=== PATIENT | female | born 1985 | race Caucasian/White ===

== ENCOUNTER 2017-04-06 19:23 | Inpatient (IN) | payer SELFPAY ==
[~2017-04-06] VITALS: Ht 167.6 cm; Wt 81.2 kg
[~2017-04-06 19:23] MED LIST: ACET-2158 PO
[2017-04-06 19:53] VITALS: Ht 167.6 cm; Wt 81.2 kg
[2017-04-06 19:54] VITALS: BP 119/74; PULSE 99; RESP 18
[2017-04-06] MEDS ORDERED: PREN-93 PO (19:56)
[2017-04-06] MEDS ORDERED: LACTATED RINGER'S 1,000 ML IV SCH (19:57)
[2017-04-06] MEDS ORDERED: MISOPROSTOL 200 MCG TAB PR PRN ×2 (20:00→21:30)
[2017-04-06] MEDS ORDERED: OXYTOCIN 30 UNITS/LR 500 ML IV SCH ×2 (20:00)
[2017-04-06] MEDS ORDERED: LIDOCAINE 1% (MPF) 30 ML INJ INJ PRN (20:00)
[2017-04-06] MEDS ORDERED: AMPICILLIN 2 GM/NS (PMX) 100 ML IV ONE (20:00)
[2017-04-06] MEDS ORDERED: IBUPROFEN 600 MG TAB PO PRN (20:00)
[2017-04-06] MEDS ORDERED: ACETAMINOPHEN/CODEINE #3 TAB PO PRN ×3 (20:00→21:30)
[2017-04-06] MEDS ORDERED: CARBOPROST 250 MCG INJ IM PRN ×2 (20:00→21:30)
[2017-04-06] MEDS ORDERED: OXYTOCIN 30 UNITS/LR 500 ML IV PRN ×2 (20:00→21:30)
[2017-04-06] MEDS ORDERED: METHYLERGONOVINE 0.2 MG INJ IM PRN ×2 (20:00→21:30)
[2017-04-06] MEDS ORDERED: BUTORPHANOL 2 MG INJ IV PRN ×2 (20:00)
[2017-04-06] MEDS ORDERED: LACTATED RINGER'S 1,000 ML IV PRN (20:04)
[2017-04-06] MEDS ORDERED: AMPICILLIN 2 GM/NS (PMX) 100 ML ONE (20:13)
[2017-04-06 20:46] LABS: ADD SCAN DIFF NO
[2017-04-06 20:49] LABS: ABNORMAL IP MESSAGE 1; BASOPHILS % 0.2 % (0.0-2.0); EOSINOPHILS # 0.2 10^3/ul (0.0-0.5); EOSINOPHILS % 1.3 % (0.0-7.0); HEMATOCRIT 29.8 % (37.0-47.0); HEMOGLOBIN 10.1 g/dl (12.0-16.0); MEAN CORPUSCULAR HEMOGLOBIN 33.9 pg (29.0-33.0); MEAN CORPUSCULAR HGB CONC 33.9 g/dl (32.0-37.0); MEAN PLATELET VOLUME 13.1 fl (7.4-10.4); MONOCYTE # 0.8 10^3/ul (0.3-0.9); MONOCYTES % 6.9 % (0.0-11.0); NEUTROPHIL # 8.8 10^3/ul (1.6-7.5); NEUTROPHILS % 73.5 % (39.0-77.0); NUCLEATED RED BLOOD CELLS% 0.2 /100WBC (0.0-0.0); PLATELET COUNT 146 10^3/UL (140-415); RED BLOOD COUNT 2.98 10^6/ul (4.20-5.40); RED CELL DISTRIBUTION WIDTH 14.6 % (11.5-14.5)
[2017-04-06 20:55] LABS: ADD UMIC NO; UR ASCORBIC ACID NEGATIVE (NEGATIVE); UR BILIRUBIN (Dip) NEGATIVE (NEGATIVE); UR BLOOD (Dip) NEGATIVE (NEGATIVE); UR CLARITY CLEAR (CLEAR); UR COLOR YELLOW (YELLOW); UR GLUCOSE (Dip) NEGATIVE (NEGATIVE); UR KETONES (Dip) NEGATIVE (NEGATIVE); UR LEUKOCYTE ESTERASE (Dip) NEGATIVE Leu/ul (NEGATIVE); UR NITRITE (Dip) NEGATIVE (NEGATIVE); UR SPECIFIC GRAVITY (Dip) 1.008 (1.003-1.030); UR TOTAL PROTEIN (Dip) NEGATIVE (NEGATIVE); UR UROBILINOGEN (Dip) NEGATIVE (NEGATIVE)
--- NOTE | 2017-04-06 21:06 | DELSUM ---
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 Babies in Womb: 1 Attempted: No Labor Anesthesia: None LABOR INFORMATION Reason for Induction: Not Applicable Onset of Labor: 04/06/2017 15:00 Complete Dilatation: 04/06/2017 20:10 Oxytocin: N/A Group B Beta Strep: Done, Result Unknown Antibiotics # of Doses: 0 Steroids Given: None Reason Steroids Not Administered: Not Applicable Other Reason Not Administered: TERM MEMBRANES Membranes Rupture Method: Spontaneous Membranes Rupture Method: Spontaneous Rupture of Membranes: 04/06/2017 20:15 Rupture of Membranes: 04/06/2017 20:15 Length of Rupture (hr): 0.03 Length of Rupture (hr): 0.03 Amniotic Fluid Color: Heavy Meconium Amniotic Fluid Color: Heavy Meconium Amniotic Fluid Amount: Small Amniotic Fluid Amount: Small Amniotic Fluid Odor: None Amniotic Fluid Odor: None STAGES OF LABOR Stage 1 hr: 5 Stage 1 min: 10 Stage 2 hr: 0 Stage 2 min: 7 Stage 3 hr: 0 Stage 3 min: 2 Total Time in Labor hr: 5 Total Time in Labor min: 19 VAGINAL DELIVERY Episiotomy: None Laceration Extension: Second Degree Laceration Type: Perineal Other Laceration: RIGHT LABIAL Laceration Repair: Yes Initial Vag Sponge Count: 10 Final Vag Sponge Count: 10 Initial Vag Sharps Count: 1 Final Vag Sharps Count: 1 Sponge Count Correct: Yes; Vaginal Sweep Performed Sharps Count Correct: Yes Count Comment: 1 SHARP ADDED TO FIELD BABY A INFORMATION Delivery Date/Time: 04/06/2017 20:17 Method of Delivery: Vaginal Method of Delivery: Vaginal Born in Route : No : N/A Forceps: N/A Vacuum Extraction: N/A Shoulder Dystocia : N/A SHOULDER DYSTOCIA BABY A Infant Delivery Date/Time: 04/06/2017 20:17 PRESENTATION/POSITION BABY A Presentation: Cephalic Cephalic Presentation: Vertex Vertex Position: Left Occipital Anterior Breech Presentation: N/A PLACENTA INFORMATION BABY A Placenta Delivery Time : 04/06/2017 20:19 Placenta Method of Delivery: Spontaneous Placenta Status: Delivered SCORES BABY A Heart Rate 1 min: >100 bpm Resp Effort 1 min: Good Cry Reflex Irritability 1 min: Cough/Sneeze/Pulls Away Muscle Tone 1 min: Active Motion Color 1 min: Blue/Pale Resuscitation Effort 1 min: Tactile Stimulation SCORE 1 MIN: 8 Heart Rate 5 min: >100 bpm Resp Effort 5 min: Good Cry Reflex Irritability 5 min: Cough/Sneeze/Pulls Away Muscle Tone 5 min: Active Motion Color 5 min: Body [place], Extremit Blue Resuscitation Effort 5 min: Tactile Stimulation SCORE 5 MIN: 9 INFORMATION BABY A Gestational Age at Delivery: 39.2 Gestational Status: Full Term- 39- 40.6 Weeks Outcome : Liveborn Infant Condition : Stable Infant Sex: Female Sex: Female IDENTIFICATION/MEDS BABY A ID Band Number: [id number] ID Band Location: Right Leg; Left Arm Sensor Applied: Yes Sensor Number: [id number] Sensor Location : Cord Clamp Vitamin K Given : Not Given Erythromycin Given: Not Given WEIGHT/LENGTH BABY A Infant Birthweight (gm): 3400 Infant Weight (lb): 7 Weight (oz): 8 Infant Length (in): 20.00 Infant Length (cm): 50.80 CORD INFORMATION BABY A No. 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
[2017-04-06 21:07] LABS: INR 0.9; PROTIME 12.1 Sec (12.2-14.2); PT RATIO 0.9
--- NOTE | 2017-04-06 21:09 | HP ---
Date/Time of Note Date/Time of Note DATE: 04/06/17 TIME: 21:03 OB - History Hx of Present Free Text/Dictation Contractions : 3 Para: 2 Care: Good Care Obstetrical Complications: None Medical Complications: None Past Family/Social History * Denies habits OB Admission Exam Vital Signs Vital Signs Vital Signs Date Time Temp Pulse Resp B/P Pulse Ox O2 Delivery O2 Flow Rate FiO2 04/06/17 19:54 98.7 99 18 119/74 Room Air Physical Exam HEENT: WNL Heart: Rhythm Normal Lungs: Clear, Equal Abdomen: WNL Extremities: Normal Reflexes: Normal Cervical Dilatation: 4cm Effacement: 100% Station: -2 Membranes: Ruptured Amniotic Fluid: Thick Meconium Accelerations: Accelerations Present Varibility: Moderate Contractions on Admission: < 5 Minutes Apart Intensity: Firm Last 72 hours Lab Results CBC & BMP 04/06/17 19:50 OB Assessment/Plan Reason for admission: active labor Other plan: at 39 weeks in active labor -admit to L&D -get records -expectant management -anticipate NELSON COURTNEY Apr 06, 2017 21:09
[2017-04-06 21:11] LABS: ALBUMIN 4.2 g/dl (3.3-4.9); ALBUMIN/GLOBULIN RATIO 1.2; CALCIUM 8.9 mg/dl (8.4-10.2); CREATININE 0.73 mg/dl (0.44-1.00); TOTAL PROTEIN 7.7 g/dl (6.1-8.1)
--- NOTE | 2017-04-06 21:18 | LDN ---
Date/Time of Note Date/Time of Note DATE: 04/06/17 TIME: 21:12 Delivery Summary Placenta Delivered: Spontaneously Meconium: Thick Perineal laceration: 2 Laceration repair: 2nd degree perineal and right labial laceration repaired with 3-0 chromic Anesthesia type: Local Estimated blood loss: 300 Sponge & Needle done & correct: Yes All needle counts correct: Yes Any foreign bodies felt in the: No Problems: Delivery Information Sex Infant Sex: female Apgars 1 Minute: 8 5 Minute: 9 Suctioning Nose & mouth suctioned at joo: Yes Umbilical Cord Umbilical cord with: 3 Vessels Cord presentations: nuchal cord Nuchal cord present X: 1 Cord Blood was obtained: Yes Mother & Baby Disposition Disposition Mom & Baby to Maternity; Good: Yes NELSON COURTNEY Apr 06, 2017 21:18
[2017-04-06] MEDS: LACTATED RINGER'S 1,000 ML IV* SCH (21:19)
[2017-04-06] MEDS ORDERED: BENZOCAINE 20% 56 ML SPRAY TOP PRN (21:30)
[2017-04-06] MEDS ORDERED: LANOLIN 7 GM TUBE TOP PRN (21:30)
[2017-04-06] MEDS ORDERED: WITCH HAZEL/GLYCERIN PAD PR PRN (21:30)
[2017-04-06] MEDS ORDERED: DIBUCAINE 1% 30 GM OINT PR PRN (21:30)
[2017-04-06 22:35] VITALS: BP 119/72; PULSE 72; RESP 19
[2017-04-06 22:40] LABS: BARBITURATES Negative (NEGATIVE); BENZODIAZEPINES Negative (NEGATIVE); CANNABINOIDS Negative (NEGATIVE); COCAINE Negative (NEGATIVE); OPIATES Negative (NEGATIVE)
[2017-04-06] MEDS: IBUPROFEN 600 MG TAB PO SCH (23:31)
[2017-04-06 23:35] VITALS: BP 121/74; PULSE 79; RESP 19
[2017-04-07] MEDS ORDERED: AMPICILLIN 1 GM/NS (PMX) 50 ML IV SCH
[2017-04-07] MEDS: OXYTOCIN 30 UNITS/LR 500 ML IV SCH ×2 (01:15→01:19)
[2017-04-07 03:30] VITALS: BP 114/59; PULSE 79; RESP 19
[2017-04-07] MEDS: LACTATED RINGER'S 1,000 ML IV* SCH ×3 (05:19→19:40)
[2017-04-07] MEDS: IBUPROFEN 600 MG TAB PO SCH ×4 (05:34→23:31)
[2017-04-07 08:00] VITALS: BP 107/66; PULSE 64; RESP 18
[2017-04-07 09:28] LABS: ADD SCAN DIFF NO
[2017-04-07 09:30] LABS: BASOPHILS % 0.2 % (0.0-2.0); EOSINOPHILS # 0.1 10^3/ul (0.0-0.5); EOSINOPHILS % 0.8 % (0.0-7.0); HEMATOCRIT 28.3 % (37.0-47.0); HEMOGLOBIN 9.6 g/dl (12.0-16.0); LYMPHOCYTES # 1.1 10^3/ul (0.8-2.9); LYMPHOCYTES % 9.1 % (15.0-51.0); MEAN CORPUSCULAR HEMOGLOBIN 34.2 pg (29.0-33.0); MEAN CORPUSCULAR HGB CONC 33.9 g/dl (32.0-37.0); MEAN CORPUSCULAR VOLUME 100.7 fl (82.0-101.0); MEAN PLATELET VOLUME 12.4 fl (7.4-10.4); MONOCYTE # 0.6 10^3/ul (0.3-0.9); MONOCYTES % 5.4 % (0.0-11.0); NEUTROPHILS % 83.6 % (39.0-77.0); PLATELET COUNT 141 10^3/UL (140-415); RED BLOOD COUNT 2.81 10^6/ul (4.20-5.40); RED CELL DISTRIBUTION WIDTH 14.5 % (11.5-14.5); WHITE BLOOD COUNT 11.9 10^3/ul (4.8-10.8)
--- NOTE | 2017-04-07 15:36 | PN ---
Date/Time of Note Date/Time of Note DATE: 04/07/17 TIME: 15:35 OB Subjective Subjective Subjective Post normal vaginal delivery day 1 Afebrile vital signs are stable abdomen soft uterus firm lochia normal extremity normal ambulation encouraged Laboratory Tests Test 04/06/17 19:50 04/07/17 09:15 White Blood Count 12.010^3/ul 11.910^3/ul Red Blood Count 2.9810^6/ul 2.8110^6/ul Hemoglobin 10.1g/dl 9.6g/dl Hematocrit 29.8% 28.3% Mean Corpuscular Volume 100.0fl 100.7fl Mean Corpuscular Hemoglobin 33.9pg 34.2pg Mean Corpuscular Hemoglobin Concent 33.9g/dl 33.9g/dl Red Cell Distribution Width 14.6% 14.5% Platelet Count 10257^3/UL 97835^3/UL Mean Platelet Volume 13.1fl 12.4fl Neutrophils % 73.5% 83.6% Lymphocytes % 17.0% 9.1% Monocytes % 6.9% 5.4% Eosinophils % 1.3% 0.8% Basophils % 0.2% 0.2% Nucleated Red Blood Cells % 0.2/100WBC 0.0/100WBC Neutrophils # 8.810^3/ul 10.010^3/ul Lymphocytes # 2.010^3/ul 1.110^3/ul Monocytes # 0.810^3/ul 0.610^3/ul Eosinophils # 0.210^3/ul 0.110^3/ul Basophils # 0.010^3/ul 0.010^3/ul Nucleated Red Blood Cells # 0.010^3/ul 0.010^3/ul Prothrombin Time 12.1Sec Prothrombin Time Ratio 0.9 INR International Normalized Ratio 0.90 Activated Partial Thromboplast Time 26.0Sec Urine Color YELLOW Urine Clarity CLEAR Urine pH 7.0 Urine Specific [place] 1.008 Urine Ketones NEGATIVEmg/dL Urine Nitrite NEGATIVEmg/dL Urine Bilirubin NEGATIVEmg/dL Urine Urobilinogen NEGATIVEmg/dL Urine Leukocyte Esterase NEGATIVELeu/ul Urine Hemoglobin NEGATIVEmg/dL Urine Glucose NEGATIVEmg/dL Urine Total Protein NEGATIVEmg/dl Sodium Level 136mmol/L Potassium Level 4.0mmol/L Chloride Level 106mmol/L Carbon Dioxide Level 22mmol/L Anion Gap 12 Blood Urea Nitrogen 14mg/dl Creatinine 0.73mg/dl Glucose Level 84mg/dl Calcium Level 8.9mg/dl Total Bilirubin 1.0mg/dl Direct Bilirubin 0.00mg/dl Indirect Bilirubin 1.0mg/dl Aspartate Amino Transf (AST/SGOT) 55IU/L Alanine Aminotransferase (ALT/SGPT) 90IU/L Alkaline Phosphatase 229IU/L Total Protein 7.7g/dl Albumin 4.2g/dl Globulin 3.50g/dl Albumin/Globulin Ratio 1.20 Urine Opiates Screen Negative Urine Barbiturates Negative Urine Amphetamines Screen Negative Urine Benzodiazepines Screen Negative Urine Cocaine Screen Negative Urine Cannabinoids Negative Rapid Plasma Reagin NONREACTIVE Hepatitis B Surface Antigen NEGATIVE HIV (1&2) Antibody NEGATIVE Current Medications Medications (Trade) Dose Ordered Sig/Yesi Route PRN Reason Start Time Stop Time Status Last Admin Dose Admin Lactated Ringer's 1,000 ml @ 125 mls/hr Q8H IV 04/06/17 19:57 04/06/17 21:28 DC 04/06/17 20:46 Ampicillin 100 ml @ 100 mls/hr ONCE ONCE IV 04/06/17 20:00 04/06/17 20:59 DC Ampicillin (Ampicillin 1 Gm/ NS (Pmx)) 50 ml @ 100 mls/hr Q4H IV 04/07/17 00:00 04/07/17 00:00 DC Butorphanol Tartrate (Stadol) 1 mg Q2H PRN IV PAIN 04/06/17 20:00 04/06/17 22:19 DC Butorphanol Tartrate (Stadol) 2 mg Q2H PRN IV PAIN 04/06/17 20:00 04/06/17 22:19 DC Lidocaine 30 ml 30 ml ONCE PRN INJ EPISIOTOMY/TEARING 04/06/17 20:00 Oxytocin/Lactated Ringer's 500 ml @ 125 mls/hr ONCE -MAY REPEAT X1 IV 04/06/17 20:00 04/06/17 20:46 Oxytocin/Lactated Ringer's 500 ml @ 125 mls/hr ONCE IV 04/06/17 20:00 04/06/17 20:47 Ibuprofen (Motrin) 600 mg ONCE PRN PO Mild Pain (Pain Score 1-3) 04/06/17 20:00 Acetaminophen/ Codeine Phosphate 2 tab 2 tab ONCE PRN PO Moderate to Severe Pain (4-10) 04/06/17 20:00 Lactated Ringer's 1,000 ml @ 2,000 mls/hr Q30M PRN IV PRE-EPIDURAL BOLUS 04/06/17 20:04 Oxytocin/Lactated Ringer's 500 ml @ 0 mls/hr ONCE PRN IV For Hemorrhage Management 04/06/17 20:00 04/06/17 21:28 DC Methylergonovine Maleate (Methergine) 0.2 mg ONCE PRN IM VAGINAL BLEEDING 04/06/17 20:00 04/06/17 21:28 DC Carboprost Tromethamine (Hemabate) 250 mcg ONCE PRN IM VAGINAL BLEEDING 04/06/17 20:00 04/06/17 21:28 DC Misoprostol 1000 mcg 1,000 mcg ONCE PRN NM VAGINAL BLEEDING 04/06/17 20:00 04/06/17 21:28 DC Ampicillin 100 ml @ STK-MED ONCE .ROUTE 04/06/17 20:13 04/06/17 20:14 DC Oxytocin/Lactated Ringer's 500 ml @ 125 mls/hr Q4H IV 04/06/17 21:19 04/07/17 05:18 DC 04/07/17 01:15 Lactated Ringer's (Lr) 1,000 ml @ 125 mls/hr Q8H IV* 04/06/17 21:19 Ibuprofen (Motrin) 600 mg Q6 PO 04/07/17 00:00 04/07/17 05:34 Acetaminophen/ Codeine Phosphate (Tylenol No.3) 1 tab Q4H PRN PO PAIN LEVEL 1-5 04/06/17 21:30 Acetaminophen/ Codeine Phosphate (Tylenol No.3) 2 tab Q4H PRN PO PAIN LEVEL 6-10 04/06/17 21:30 Witch Tamara/ Glycerin (Tucks Pads) 1 pad BEDSIDE MEDICATION PRN NM HEMORRHOID/EPISIOTMY PAIN 04/06/17 21:30 04/06/17 23:31 Benzocaine (Dermoplast [place]) 1 spray BEDSIDE MEDICATION PRN TOP HEMORRHOID/EPISIOTMY PAIN 04/06/17 21:30 04/06/17 23:31 Dibucaine (Nupercainal) 1 applic BEDSIDE MEDICATION PRN NM HEMORRHOID/EPISIOTMY PAIN 04/06/17 21:30 Lanolin (Xik-I-Oavlqo) 1 applic BEDSIDE MEDICATION PRN TOP BEDSIDE FOR EMMA TO NIPPLES 04/06/17 21:30 04/06/17 23:32 Measles/Mumps/ Rubella Vaccine Live (Mmr Ii Vaccine) 0.5 ml ONCE ONCE SC* 04/08/17 09:00 04/08/17 09:01 Diphtheria/ Tetanus/Acell Pertussis (Adacel) 0.5 ml ONCE ONCE IM* 04/08/17 09:00 04/08/17 09:01 Varicella Virus Vaccine Live 1350 unit 1,350 unit ONCE ONCE SC* 04/08/17 09:00 04/08/17 09:01 Oxytocin/Lactated Ringer's 500 ml @ 0 mls/hr ONCE PRN IV For Hemorrhage Management 04/06/17 21:30 Methylergonovine Maleate (Methergine) 0.2 mg ONCE PRN IM VAGINAL BLEEDING 04/06/17 21:30 Carboprost Tromethamine (Hemabate) 250 mcg ONCE PRN IM VAGINAL BLEEDING 04/06/17 21:30 Misoprostol (Cytotec) 1,000 mcg ONCE PRN NM VAGINAL BLEEDING 04/06/17 21:30 RADHA VALDEZ MD Apr 07, 2017 15:36
[2017-04-07 16:00] VITALS: BP 106/63; PULSE 86; RESP 18
[2017-04-07 19:30] VITALS: BP 109/69; PULSE 79; RESP 19
[2017-04-08 03:50] VITALS: BP 111/75; PULSE 80; RESP 19
[2017-04-08] MEDS: LACTATED RINGER'S 1,000 ML IV* SCH ×2 (04:30→13:19)
[2017-04-08] MEDS: IBUPROFEN 600 MG TAB PO SCH ×2 (05:39→12:00)
[2017-04-08 08:00] VITALS: BP 99/59; RESP 18
[2017-04-08] MEDS ORDERED: MEASLES,MUMPS,RUBELLA VACCINE INJ SC* ONE (09:00)
[2017-04-08] MEDS ORDERED: VARICELLA VACCINE LIVE/PF 1,350 UNIT/0.5 ML ML SC* ONE (09:00)
[2017-04-08] MEDS ORDERED: DIPHTH/TET/ACEL PERTUSS (ADULT) 0.5 ML VIAL IM* ONE (09:00)
[2017-04-08 10:30] LABS: RUBELLA ANTIBODY - IGG 5.25 index
--- NOTE | 2017-04-08 11:47 | PD.PPDC ---
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 Condition Patient Condition: Good Diet Diet: Resume Regular Diet Activity/Restrictions Activity: Normal Activity May Shower Restrictions: No Exercising No Lifting No Driving No Sexual Activity Nothing in the Vagina No [place] No Tampons, douche Follow-up Follow-up with Physician: 2, Week/Weeks Provider Information: Appointment clinic in 2 weeks for check patient received follow-up instructions Return to clinic for [employer] Instructions: Fever greater than 101 Chills Worsening abdominal pain Excessive Vaginal Bleeding More than 2 pads per hour Unable to tolerate diet OB Instructions: Breast Tenderness Depression Blurried Vision Headache Surgical Instructions: Incisional Drainage Incisional Redness RADHA VALDEZ MD Apr 08, 2017 11:47
--- NOTE | 2017-04-08 11:49 | DS ---
Date/Time of Note Date/Time of Note DATE: 04/08/17 TIME: 11:48 Discharge Summary Admission/Discharge Info Admit Date/Time Apr 06, 2017 at 19:45 Discharge Date/Time April 08, 2017 at 1145 Discharge Diagnosis Post normal vaginal delivery day 2 Patient Condition: Fair Procedures Normal spontaneous vaginal delivery Hx of Present Illness Term in labor Hospital Course Satisfactory uneventful Home Meds Reported Medications Vit No.124/Iron/FA ( Vitamin Tablet) 1 Each Tablet, 1 EACH PO, TAB 04/06/17 Discontinued Scripts Acetaminophen (TYLENOL 325 MG TAB) 325 Mg Tab, 650 MG PO Q4H Y for PAIN LEVEL 1- 5 AND/OR PAIN for 7 Days, TAB Prov:DOMENICO REYNOLDS MD 07/11/14 Follow-up Plan instructions given appointment clinic in 2 week Primary Care Provider Care Physician No Primary Time spent on discharge: < 30 minutes RADHA VALDEZ MD Apr 08, 2017 11:49
== END 2017-04-08 14:00 | disposition home or self-care (01) | DRG 775 ==
LOC: L-D 19:23 → OBT 19:23 → L-D 19:45 → OBT 20:16 → PP1 22:33
PROVIDERS: ADMIT Obstetrics & Gynecology; ATTEND Obstetrics & Gynecology
PROC: 10E0XZZ Delivery of Products of Conception, External Approach (ICD-10-PCS; principal; 2017-04-06)
PROC: 0HQ9XZZ Repair Perineum Skin, External Approach (ICD-10-PCS; 2017-04-06)
DX: O77.0 Labor and delivery complicated by meconium in amniotic fluid (principal); O69.81X0 Labor and delivery complicated by cord around neck, without compression, not applicable or unspecified; O70.0 First degree perineal laceration during delivery; Z3A.39 39 weeks gestation of pregnancy; Z37.0 Single live birth
CPT/HCPCS: 80053; 80307; 81003; 85025; 85610; 85730; 86592; 86703; 86762; 86900; 86901; 87086; 87340; 88307; 90715; 90716; 99464; G0463; J0290; J2590; J7120